=== PATIENT | female | born 2000 | race African-American/Black ===

== ENCOUNTER 2024-04-18 09:11 | Emergency (ER) | payer OTHER ==
[~2024-04-18] VITALS: Ht 160 cm; Wt 63.5 kg
[~2024-04-18 09:11] MED LIST: IBUP-2030 MT
[2024-04-18 09:24] VITALS: O2SAT 99
[2024-04-18] MEDS ORDERED: ONDANSETRON 4MG ODT PO ONE (10:30)
[2024-04-18] MEDS ORDERED: KETOROLAC 30MG/ML VIAL IM ONE (10:30)
[2024-04-18] MEDS ORDERED: IBUP-2028 MT (13:19)
[2024-04-18] MEDS ORDERED: ONDA4TAB50 MT (13:19)
[2024-04-18] MEDS ORDERED: TOPUD MT (13:19)
[2024-04-18] MEDS: ONDANSETRON 4MG ODT PO NR (14:02)
[2024-04-18] MEDS: KETOROLAC 30MG/ML VIAL IM NR (14:02)
[2024-04-18 14:07] VITALS: BP 118/64; PULSE 80; RESP 16; TEMP 36.89184; O2SAT 99
== END 2024-04-18 14:13 | disposition home or self-care (01) ==
LOC: ER 09:19
DX: B34.9 Viral infection, unspecified (principal)
CPT/HCPCS: 99283; 71045; 81025; 96372; Q0162; J1885